=== PATIENT | female | born 1980 | race Caucasian/White ===

== ENCOUNTER 2019-04-13 21:14 | Emergency (ER) | payer OTHER ==
[~2019-04-13] VITALS: Ht 167.6 cm; Wt 110.7 kg
[2019-04-13 21:29] VITALS: Ht 167.6 cm; Wt 110.7 kg
[2019-04-14 01:50] VITALS: BP 123/758
== END 2019-04-14 01:50 | disposition home or self-care (01) ==
LOC: ED 21:14
DX: L50.0 Allergic urticaria (principal)
CPT/HCPCS: J2930

== ENCOUNTER 2019-10-30 19:43 | Emergency (ER) | payer OTHER ==
[~2019-10-30] VITALS: Ht 167.6 cm; Wt 108.9 kg
[2019-10-30 19:45] VITALS: Ht 167.6 cm; Wt 108.9 kg
[2019-10-30 20:38] VITALS: BP 146/89
== END 2019-10-30 21:03 | disposition left against medical advice (07) ==
LOC: ED 19:43
DX: Z53.21 Procedure and treatment not carried out due to patient leaving prior to being seen by health care provider (principal)